=== PATIENT | male | born 1980 | race Caucasian/White ===

== ENCOUNTER 2016-11-09 11:44 | Emergency (ER) | payer OTHER ==
[2016-11-09] MEDS ORDERED: ACETAMINOPHEN 500 MG TABLET ONE (12:33)
--- NOTE | 2016-11-09 13:23 | RAD ---
EXAMINATION:FOOT RIGHT 3 VIEWS CLINICAL INDICATION: Distal right fifth metatarsal pain following injury. Initial encounter. COMPARISONS:none FINDINGS: No fracture or focal destruction is identified. Joint space relationships of the foot are maintained. Calcaneal heel spur is noted. IMPRESSION: No evidence of acute displaced fracture or dislocation involving the left foot. Plantar calcaneal heel spur is noted.
== END 2016-11-09 13:35 | disposition home or self-care (01) ==
LOC: ED 11:44
DX: S93.504A Unspecified sprain of right lesser toe(s), initial encounter (principal); W22.8XXA Striking against or struck by other objects, initial encounter; Y93.02 Activity, running; Y92.008 Other place in unspecified non-institutional (private) residence as the place of occurrence of the external cause
CPT/HCPCS: 73630; 99283 ×2; A9270